=== PATIENT | female | born 1990 | race Two or more races ===

== ENCOUNTER 2017-05-02 11:22 | Emergency (ER) | payer SELFPAY ==
[2017-05-02 11:47] VITALS: BP 119/74; PULSE 87; TEMP 99.1; BMI 27.3
[2017-05-02] MEDS ORDERED: DEXAMETHASONE SOD PHOSPHATE 20 MG/5 ML VIAL IVPB ONE (12:38)
[2017-05-02] MEDS ORDERED: FAMOTIDINE IV 20 MG/12 ML VIAL IVPB ONE (12:38)
[2017-05-02] MEDS ORDERED: FAMOTIDINE 20 MG/50 ML IVPB 20 MG/50 ML MG IVPB ONE (12:45)
[2017-05-02] MEDS ORDERED: DEXAMETHASONE SOD PHOSPHATE 10 MG/1 ML VIAL ONE (12:45)
--- NOTE | 2017-05-02 12:51 | PDOC ---
History of Present Illness - General Chief Complaint: Allergic Reaction Stated Complaint: ALLERGIC REACTION Time Seen by Provider: 05/02/17 12:30 History Source: Patient Exam Limitations: No Limitations - History of Present Illness Initial Comments: 05/02/17 12:43 26 yr female with rash to face started after having a facial peel then went to an indoor water park area where she did not swim but was exposed to humid chlorine conditions. Pt has itching, redness and swelling to her face , ears and rash to her neck. Pt denies SOB no diff swallowing or speaking. no medical history or allergies. Timing/Duration: 24 hours Severity: moderate Past History - Past Medical History Allergies/Adverse Reactions: Allergies Allergy/AdvReac Type Severity Reaction Status Date / Time No Known Allergies Allergy Verified 05/02/17 11:44 Home Medications: Ambulatory Orders Prednisone [Deltasone -] 20 mg PO DAILY #5 tablet 05/02/17 COPD: No - Suicide/Smoking/Psychosocial Hx Smoking History: Never smoked Have you smoked in the past 12 months: No Information on smoking cessation initiated: No Hx Alcohol Use: No Drug/Substance Use Hx: No Substance Use Type: None Review of Systems - Review of Systems Able to Perform ROS?: Yes Is the patient limited Salvadorean proficient: No Constitutional: No: Symptoms Reported HEENTM: No: Symptoms Reported Respiratory: No: Symptoms reported Cardiac (ROS): No: Symptoms Reported ABD/GI: No: Symptoms Reported : No: Symptoms Reported Musculoskeletal: No: Symptoms Reported Integumentary: Yes: Symptoms Reported *Physical Exam - Vital Signs Last Vital Signs Temp Pulse Resp BP Pulse Ox 99.1 F 87 18 119/74 100 05/02/17 11:44 05/02/17 11:44 05/02/17 11:44 05/02/17 11:44 05/02/17 11:44 - Physical Exam General Appearance: Yes: Nourished, Appropriately Dressed HEENT: positive: EOMI, ALEXANDER, Normal ENT Inspection, TMs Normal, Pharynx Normal Neck: positive: Supple. negative: Tender, Tender lateral Respiratory/Chest: positive: Lungs Clear, Normal Breath Sounds. negative: Chest Tender Cardiovascular: positive: Regular Rhythm, Regular Rate Gastrointestinal/Abdominal: positive: Normal Bowel Sounds, Soft Musculoskeletal: positive: Normal Inspection Extremity: positive: Normal Capillary Refill, Normal Inspection, Normal Range of Motion Integumentary: positive: Normal Color, Dry, Warm, Rash (face with edema, erythema and blistering, spreading to neck and ears) Neurologic: positive: Fully Oriented, Alert, Normal Mood/Affect, Normal Response , Motor Strength 5/5 Medical Decision Making - Medical Decision Making 05/02/17 14:13 cc: rash after using facial peel and then went to indoor waterpark around cholrine and humidity 2 days now with selling, redness, blistering no airway involvement will give IV benadryl, decadron, pepcid and re-eval 05/06/17 15:04 LATE ENTRY: pt improved after the medications, dc inst discussed with pt and her who agree with and understand the plan of care leaving the ER all questions asked and answered. *DC/Admit/Observation/Transfer Diagnosis at time of Disposition: Allergic reaction Qualifiers: Encounter type: initial encounter Qualified Code(s): T78.40XA - Allergy, unspecified, initial encounter - Discharge Dispostion Disposition: HOME Condition at time of disposition: Stable - Prescriptions Prescriptions: Prednisone [Deltasone -] 20 mg PO DAILY #5 tablet - Referrals Referrals: Erica Garcia MD [Staff Physician] - - Patient Instructions Additional Instructions: apply cool compresses cool cloths to the face to help soothe you can apply aloe vera gel to the area as well to help cool the face take benadryl 50mg every 6hrs for itching, redness and swelling as needed do not plan to drive or operate machinery benadryl makes you sleepy, you can take a non drowsy antihistamine such as claritin or johnny follow with a dermatolgist if symptoms worsen avoid any extememe changes in temperatures as this can make symptoms worse again. - Post Discharge Activity
== END 2017-05-02 15:01 | disposition home or self-care (01) ==
LOC: JERFT 11:22
PROC: 3E033GC Introduction of Other Therapeutic Substance into Peripheral Vein, Percutaneous Approach (ICD-10-PCS; principal; 2017-05-02)
PROC: 3E033GC Introduction of Other Therapeutic Substance into Peripheral Vein, Percutaneous Approach (ICD-10-PCS; 2017-05-02)
PROC: 3E0333Z Introduction of Anti-inflammatory into Peripheral Vein, Percutaneous Approach (ICD-10-PCS; 2017-05-02)
DX: L23.2 Allergic contact dermatitis due to cosmetics (principal)
CPT/HCPCS: 99281-25

== ENCOUNTER 2022-07-16 06:00 | Inpatient (IN) | payer OTHER ==
[2022-07-16] MEDS ORDERED: CITRIC ACID/SODIUM CITRATE 30 ML UNIT-DOSE CUP PO ONE ×2 (06:15→07:26)
[2022-07-16] MEDS ORDERED: ELECTROLYTE-148 SOLN 500 ML IV SCH ×2 (06:15→06:45)
[2022-07-16 06:56] VITALS: BMI 39.4
[2022-07-16] MEDS ORDERED: ELECTROLYTE-148 SOLN 1,000 ML IV SCH (07:30)
[2022-07-16] MEDS ORDERED: ONDANSETRON 4 MG/2 ML VIAL IVPUSH PRN (07:48)
[2022-07-16] MEDS ORDERED: ACETAMINOPHEN 325 MG TABLET (FP) PO PRN ×2 (07:48→09:37)
[2022-07-16] MEDS ORDERED: morphine SULFATE/PF 1 MG/2 ML (2cc Syringe - QUVA) EP ONE (07:48)
[2022-07-16] MEDS ORDERED: SODIUM CHLORIDE 0.9% P/F 10 ML VIAL IJ ONE (07:55)
[2022-07-16] MEDS ORDERED: ceFAZolin SODIUM 1 GM VIAL ONE (07:55)
[2022-07-16] MEDS ORDERED: morphine SULFATE (PF) 1 MG/2 ML SYRINGE ONE (07:55)
[2022-07-16] MEDS ORDERED: PHENYLEPHRINE HCL 10 MG/1 ML SINGLE DOSE VIAL ONE (08:15)
[2022-07-16] MEDS ORDERED: OXYTOCIN 10 UNITS/ML VIAL ONE ×2 (08:43→09:04)
[2022-07-16] MEDS ORDERED: TRIAMCINOLONE ACET 40MG/1ML VIAL SQ ONE (09:00)
[2022-07-16] MEDS ORDERED: ONDANSETRON 4 MG/2 ML VIAL ONE (09:04)
[2022-07-16] MEDS ORDERED: METHYLERGONOVINE MALEATE 0.2 MG/1 ML AMP IM PRN (09:37)
[2022-07-16] MEDS ORDERED: ALBUTEROL SO4 HFA INHALER IH PRN (09:43)
[2022-07-16] MEDS ORDERED: ACETAMINOPHEN 325 MG TABLET (FP) ONE (10:06)
[2022-07-16] MEDS ORDERED: IBUPROFEN 800 MG/8 ML IJ IVPB ONE (10:10)
[2022-07-16] MEDS ORDERED: OXYTOCIN 20 UNITS in 0.9% NS 20 UNIT/1,000 ML INFUS.BAG IV ONE (10:23)
[2022-07-16] MEDS: IBUPROFEN 800 MG/8 ML IJ IVPB PRN ×2 (10:32→16:29)
[2022-07-16] MEDS: OXYTOCIN 20 UNITS in 0.9% NS 20 UNIT/1,000 ML INFUS.BAG IV SCH ×2 (10:33→19:37)
[2022-07-16] MEDS: FERROUS SO4 325 MG TABLET (FP) PO SCH ×2 (12:52→23:47)
[2022-07-16] MEDS: PRENATAL VITAMINS W/ FOLIC ACID TABLET (FP) PO SCH (12:52)
[2022-07-16] MEDS ORDERED: oxyCODONE HCL 5 MG TABLET PO PRN (21:37)
[2022-07-17] MEDS: IBUPROFEN 800 MG/8 ML IJ IVPB PRN (01:07)
[2022-07-17] MEDS: oxyCODONE HCL 5 MG TABLET PO PRN (06:12)
[2022-07-17] MEDS: SIMETHICONE 80 MG TAB.CHEW (FP) PO PRN ×2 (06:12→15:21)
[2022-07-17 08:26] LABS: BASO % 0.3 % (0-2.0); HEMATOCRIT 32.5 % (32.4-45.2); HEMOGLOBIN 11.3 GM/dL (10.7-15.3); LYMPH % 15.4 % (8-40); MCH 30.2 pg (25.7-33.7); MCHC 34.8 g/dl (32.0-36.0); MEAN CELL VOLUME 86.8 fl (80-96); MONO % 6.5 % (3.8-10.2); NEUT % 76.8 % (42.8-82.8); PLATELET COUNT 232 10^3/uL (134-434); RBC 3.74 M/mm3 (3.60-5.2); RDW 13.9 % (11.6-15.6); WHITE BLOOD COUNT 8.3 K/mm3 (4.0-10.0)
[2022-07-17] MEDS: PRENATAL VITAMINS W/ FOLIC ACID TABLET (FP) PO SCH (09:32)
[2022-07-17] MEDS: FERROUS SO4 325 MG TABLET (FP) PO SCH ×2 (09:33→21:22)
[2022-07-17] MEDS ORDERED: BISACODYL 10 MG SUPP.RECT RC PRN (09:37)
[2022-07-17] MEDS: IBUPROFEN 600 MG TABLET (FP) PO PRN ×3 (09:38→21:22)
[2022-07-17] MEDS ORDERED: DIPHTH,PERTUSS(ACELL),TET 0.5 ML DISP.SYRIN IM ONE (14:00)
[2022-07-17] MEDS: SENNOSIDES/DOCUSATE COMBO (SENNA PLUS) TABLET (UD) PO PRN (21:22)
[2022-07-18] MEDS: oxyCODONE HCL 5 MG TABLET PO PRN ×3 (02:55→19:29)
[2022-07-18] MEDS: SIMETHICONE 80 MG TAB.CHEW (FP) PO PRN ×3 (02:55→19:28)
[2022-07-18] MEDS: FERROUS SO4 325 MG TABLET (FP) PO SCH ×2 (09:28→21:05)
[2022-07-18] MEDS: PRENATAL VITAMINS W/ FOLIC ACID TABLET (FP) PO SCH (09:28)
[2022-07-18] MEDS: IBUPROFEN 600 MG TABLET (FP) PO PRN ×2 (13:05→22:26)
[2022-07-18] MEDS: SENNOSIDES/DOCUSATE COMBO (SENNA PLUS) TABLET (UD) PO PRN (19:28)
[2022-07-19] MEDS: SIMETHICONE 80 MG TAB.CHEW (FP) PO PRN (02:00)
[2022-07-19] MEDS: IBUPROFEN 600 MG TABLET (FP) PO PRN ×3 (02:01→10:10)
[2022-07-19] MEDS: PRENATAL VITAMINS W/ FOLIC ACID TABLET (FP) PO SCH (10:10)
[2022-07-19] MEDS: FERROUS SO4 325 MG TABLET (FP) PO SCH (10:10)
[2022-07-19] MEDS: SENNOSIDES/DOCUSATE COMBO (SENNA PLUS) TABLET (UD) PO PRN (10:21)
[2022-07-19 10:47] VITALS: BP 130/83; PULSE 106; RESP 18; TEMP 98.8
== END 2022-07-19 12:50 | disposition home or self-care (01) | DRG 540 ==
LOC: JLDR 06:00 → J3W 11:15
PROVIDERS: ADMIT Obstetrics & Gynecology; ATTEND Obstetrics & Gynecology
PROC: 10D00Z1 Extraction of Products of Conception, Low, Open Approach (ICD-10-PCS; principal; 2022-07-16)
DX: O34.211 Maternal care for low transverse scar from previous cesarean delivery (principal); N85.8 Other specified noninflammatory disorders of uterus; Z3A.39 39 weeks gestation of pregnancy; Z37.0 Single live birth
CPT/HCPCS: 36415; 85025; 88307-TC; 90715; 94010